=== PATIENT | male | born 1950 | race Caucasian/White ===

== ENCOUNTER 2025-04-23 08:12 | Outpatient (CLI) | payer MEDICARE | END 2025-04-23 08:13 | disposition home or self-care (01) | LOC: NAV RAD 08:12 | PROVIDERS: ATTEND Nurse Practitioner Family | DX: M54.41 Lumbago with sciatica, right side (principal); M43.12 Spondylolisthesis, cervical region; M47.816 Spondylosis without myelopathy or radiculopathy, lumbar region | CPT/HCPCS: 72100 ==